=== PATIENT | female | born 1995 | race American Indian/Alaskan Native ===

== ENCOUNTER 2020-09-01 16:51 | Emergency (ER) | payer SELFPAY ==
--- NOTE | 2020-09-01 17:36 | Event Note ---
ED Screening Note Date of service: 09/01/20 Time: 17:35 ED Screening Note: c/o vaginal discharge x 1 week denies urinary sxs also states mild lower abdominal pain no lower abdominal ttp on exam This initial assessment/diagnostic orders/clinical plan/treatment(s) is/are subject to change based on patients health status, clinical progression and re- assessment by fellow clinical providers in the ED. Further treatment and workup at subsequent clinical providers discretion. Patient/guardian urged not to elope from the ED as their condition may be serious if not clinically assessed and managed. Initial orders include: UA ACC
[2020-09-01 17:39] VITALS: BP 139/89
[2020-09-01] MEDS ORDERED: LIDOCAINE-MPF (1%) 10 MG/1 ML VIAL 5 ML INFILTRATI ONE (21:11)
--- NOTE | 2020-09-01 21:20 | Emergency Department Report ---
ED Female HPI - General Chief complaint: Urogenital-Male Stated complaint: POSS UTI Time Seen by Provider: 09/01/20 17:34 Source: patient Mode of arrival: Ambulatory Limitations: No Limitations - History of Present Illness Initial comments: 24-year-old [place] female has been department complaining of having contact with her partner who has tested positive for an STD of an unknown etiology and seeks treatment in the ED. States that she has had some minimal irritation as her last extra contact was 1 week ago but she reports no vaginal bleeding no discharge no flank pain no fever chills no sweats. No pelvic pain. Improves with: none Are you Now?: No Associated Symptoms: denies other symptoms - Related Data Previous Rx's Medication Instructions Recorded Last Taken Type Azithromycin [Zithromax TAB] 1,000 mg PO ONCE #2 tablet 09/01/20 Unknown Rx metroNIDAZOLE [Flagyl] 2,000 mg PO ONCE #4 tablet 09/01/20 Unknown Rx ED Review of Systems ROS: Stated complaint: POSS UTI Other details as noted in HPI Comment: All other systems reviewed and negative ED Past Medical Hx - Past Medical History Previous Medical History?: No - Surgical History Past Surgical History?: No - Medications Home Medications: Home Medications Medication Instructions Recorded Confirmed Last Taken Type Azithromycin [Zithromax TAB] 1,000 mg PO ONCE #2 tablet 09/01/20 Unknown Rx metroNIDAZOLE [Flagyl] 2,000 mg PO ONCE #4 tablet 09/01/20 Unknown Rx ED Physical Exam - General Limitations: No Limitations General appearance: alert, in no apparent distress - Head Head exam: Present: atraumatic, normocephalic - Eye Eye exam: Present: normal appearance - ENT ENT exam: Present: mucous membranes moist - Neck Neck exam: Present: normal inspection - Respiratory Respiratory exam: Present: normal lung sounds bilaterally. Absent: respiratory distress - Cardiovascular Cardiovascular Exam: Present: regular rate, normal rhythm. Absent: systolic murmur, diastolic murmur, rubs, gallop - GI/Abdominal GI/Abdominal exam: Present: soft, normal bowel sounds. Absent: distended, tenderness, guarding, rebound - Extremities Exam Extremities exam: Present: normal inspection - Back Exam Back exam: Present: normal inspection - Neurological Exam Neurological exam: Present: alert, oriented X3 - Psychiatric Psychiatric exam: Present: normal affect, normal mood - Skin Skin exam: Present: warm, dry, intact, normal color. Absent: rash ED Course Vital Signs 09/01/20 17:35 Temperature 98.8 F Pulse Rate 74 Respiratory 16 Rate Blood Pressure 139/89 O2 Sat by Pulse 99 Oximetry ED Medical Decision Making - Medical Decision Making 24-year-old [place] female with [facility] department seeking STD treatment. Discussed with her the need to follow-up with a [facility] for definitive treatment and evaluation for STDs she still requested to be treated for the bacterial portion today currently she appears to be in no no no drainage and no pain Critical care attestation.: If time is entered above; I have spent that time in minutes in the direct care of this critically ill patient, excluding procedure time. ED Disposition Clinical Impression: Possible exposure to STD, Dysuria Disposition: - TO HOME OR SELFCARE Is pt being admited?: No Does the pt Need Aspirin: No Condition: Stable Instructions: Sexually Transmitted Diseases (ED), Chlamydia Infection (ED), Safe Sex (ED) Additional Instructions: Please follow-up with her department for further evaluation regarding your STD status Referrals: PRIMARY CARE [Primary Care Provider] - 3-5 Days [facility] [Outside] - 3-5 Days
== END 2020-09-01 21:55 | disposition home or self-care (01) ==
LOC: ED 16:51
DX: Z20.2 Contact with and (suspected) exposure to infections with a predominantly sexual mode of transmission (principal)
CPT/HCPCS: 96372; 99282; J0696